=== PATIENT | female | born 1965 | race Caucasian/White ===

== ENCOUNTER 2018-05-31 14:19 | Emergency (ER) | END 2018-05-31 20:43 | disposition home or self-care (01) ==

== ENCOUNTER 2018-06-28 10:09 | Day surgery (SDC) | payer OTHER ==
[~2018-06-28] VITALS: Ht 157.5 cm; Wt 93.0 kg
[~2018-06-28 10:09] MED LIST: CEPH-443 PO; ESCI10TA48 PO; HYDR-843 PO; HYDR12.58 PO; INSU100I33 SC; LAMO100T PO; LAMO25TA PO; LOSA50TA14 PO; MAG355OR14 PO; METF100010 PO; OMEP40CA6 PO; PRAV20TA63 PO
[2018-06-28 11:31] VITALS: BP 118/57; PULSE 66; RESP 16
[2018-06-28] MEDS ORDERED: pravastatin (11:34)
[2018-06-28] MEDS ORDERED: HYDROCHLORATHIAZIDE (11:34)
[2018-06-28] MEDS ORDERED: levothyroxine (11:34)
[2018-06-28] MEDS ORDERED: losartan (11:34)
[2018-06-28] MEDS ORDERED: metformin (11:34)
--- NOTE | 2018-06-28 11:34 | PREAC ---
Date/Time of Note Date/Time of Note DATE: 06/28/18 TIME: 11:31 Anesthesia Eval and Record Evaluation Time Pre-Procedure Interview DATE: 06/28/18 TIME: 11:31 Age 52 Sex female NPO: 8 hrs Preoperative diagnosis Abdominal Pain, Screening Planned procedure EGD, Colonoscopy Past Medical History Past Medical History: Includes Cardio: HTN, Dyslipidemia Endo: Diabetes, Hypothyroid GI: Obesity Psych: Bipolar Surgery & Anesthesia Issues No known issue Meds Anticoagulation: No Beta Mela within 24 hr: No Reason Beta Mela not given: Pt. not on B-Mela Active Scripts Cephalexin* (Keflex*) 500 Mg Capsule, 500 MG PO QID for 5 Days, CAP Prov:LUIS MANUEL BARRAGAN MD 05/31/18 Mag Hydrox/Al Hydrox/Simeth (Maalox Advanced Suspension) 355 Ml Oral.susp, 2 TSP PO TID PRN for PAIN, #24 OZ Prov:LUIS MANUEL BARRAGAN MD 05/31/18 Reported Medications Hydroxyzine Hcl* (Hydroxyzine Hcl*) 25 Mg Tablet, 25 MG PO QHS PRN for ITCHING, #30 TAB 05/31/18 Omeprazole* (Omeprazole*) 40 Mg Capsule.dr, 40 MG PO DAILY, #30 CAP 05/31/18 Escitalopram Oxalate* (Escitalopram Oxalate*) 10 Mg Tablet, 10 MG PO DAILY, #30 TAB 05/31/18 Lamotrigine* (Lamotrigine*) 100 Mg Tablet, 100 MG PO BID, TAB 05/31/18 Lamotrigine* (Lamotrigine*) 25 Mg Tablet, 50 MG PO QHS, TAB 05/31/18 Pravastatin Sodium* (Pravastatin Sodium*) 20 Mg Tablet, 20 MG PO HS, TAB 05/31/18 Insulin Glargine,Hum.rec.anlog (Basaglar Kwikpen U-100) 100 Unit/1 Ml Insuln.pen, 22 UNIT SC QHS, EA 05/31/18 Hydrochlorothiazide* (Hydrochlorothiazide*) 12.5 Mg Tablet, 12.5 MG PO DAILY, #30 TAB 05/31/18 Losartan Potassium* (Losartan Potassium*) 50 Mg Tablet, 50 MG PO DAILY, TAB 05/31/18 Metformin Hcl* (Metformin Hcl*) 1,000 Mg Tablet, 1000 MG PO WITH BREAKFAST DINNE, #60 TAB 05/31/18 Meds reviewed: Yes Allergies Coded Allergies: metoclopramide (Unverified Allergy, Unknown, 05/31/18) Allergies Reviewed: Yes Labs/Studies Labs Reviewed: Reviewed by anesthesiologist test: N/A (menopaused at age 47yr old) Studies: ECG (n/a), CXR (n/a) Pre-procedure Exam Airway: Adequate mouth opening, Adequate thyromental dist Mallampati: Mallampati II Teeth: Normal Lung: Normal Heart: Normal ASA Physical Status ASA physical status: 3 Emergency: None Planned Anesthetic General/MAC: MAC Planned Pain Management Parenteral pain med Pre-operative Attestations Prior to commencing anesthesia and surgery, the patient was re-evaluated, there was verification of: *The patient's identity *The results of appropriate recent lab work and preoperative vital signs *The above evaluation not changing prior to induction *Anesthetic plan, risk benefits, alternative and complications discussed with patient/family; questions answered; patient/family understands, accepts and wishes to proceed. NOLVIA AIKEN MD Jun 28, 2018 11:34
[2018-06-28 11:37] VITALS: Ht 157.5 cm; Wt 93.0 kg
--- NOTE | 2018-06-28 12:01 | PAC ---
Date/Time of Note Date/Time of Note DATE: 06/28/18 TIME: 12:01 Post-Anesthesia Notes Post-Anesthesia Note Last documented vital signs T: 98.1 Activity: WNL Respiratory function: WNL Cardiovascular function: WNL Mental status: Baseline Pain reasonably controlled: Yes Hydration appropriate: Yes Nausea/Vomiting absent: Yes NOLVIA AIKEN MD Jun 28, 2018 12:01
[2018-06-28 12:24] VITALS: BP 113/59; PULSE 70; RESP 16
== END 2018-06-28 13:35 | disposition home or self-care (01) ==
LOC: GIL 10:09
PROVIDERS: ATTEND Internal Medicine Gastroenterology
DX: R19.4 Change in bowel habit (principal); K64.8 Other hemorrhoids; K29.60 Other gastritis without bleeding; I10 Essential (primary) hypertension; E11.9 Type 2 diabetes mellitus without complications; E03.9 Hypothyroidism, unspecified; E78.5 Hyperlipidemia, unspecified
CPT/HCPCS: 43239; 45378; 82962; Z7610; 88305